=== PATIENT | male | born 2000 ===

== ENCOUNTER 2020-10-20 06:35 | Day surgery (SDC) | payer OTHER | END 2020-10-20 12:40 | disposition home or self-care (01) | LOC: AMB-ENDOS 06:35 | PROVIDERS: ATTEND Colon & Rectal Surgery | DX: K62.89 Other specified diseases of anus and rectum (principal); K64.0 First degree hemorrhoids ==

== ENCOUNTER 2023-06-18 10:15 | Day surgery (SDC) | payer OTHER ==
[2023-06-17 08:24] LABS: HEMOGLOBIN 15.8 g/dL (13-16.00); MEAN CELL VOLUME 89.4 fL (80.0-100.00); MEAN CORPUSCULAR HEMOGLOBIN 31.5 pg (27.00-32.0); MEAN CORPUSCULAR HGB CONC 35.2 g/dl (32.0-36.0); PLATELET COUNT 225 K/uL (150-450); RED BLOOD COUNT 5.04 M/uL (4.00-6.00); RED CELL DISTRIBUTION WIDTH 12.6 % (11.5-14.5)
[2023-06-17 08:32] LABS: PH,URINE 5.5 (5.0-8.0); URINE APPEARANCE Clear; URINE BILIRRUBIN Negative (NEGATIVE); URINE BLOOD Negative; URINE COLOR Dark Yellow; URINE GLUCOSE Negative (NEGATIVE); URINE LEUKOCYTE Negative; URINE NITRATE Negative; URINE PROTEIN 30 (NEGATIVE)
[2023-06-17 08:36] LABS: URINE BACTERIA 13.8 uL (0.0-1933); URINE EPITHELIAL CELLS 5.7 uL (0.0-38.8); URINE RBC 7.4 uL (0.0-20.8)
[2023-06-17 08:49] LABS: INR 1.02
[2023-06-17 08:54] LABS: PROTHROMBIN TIME 10.7 SECONDS (9.0-11.5)
[2023-06-17 09:05] LABS: ALBUMIN 4.3 gm/dL (3.4-5.0); BILIRUBIN TOTAL 0.89 mg/dL (0.3-1.2); CALCIUM 9.7 mg/dL (8.5-10.1); CREATININE SERUM 1.35 mg/dL (0.70-1.30); GFR 64.93; GLOBULINA 3.4 G/DL (2.4-3.5); POTASSIUM 3.94 mEq/L (3.5-5.1); TOTAL PROTEIN 7.7 gm/dL (6.4-8.2)
[~2023-06-18] VITALS: Ht 175.3 cm; Wt 81.6 kg
[2023-06-18] MEDS ORDERED: METRONIDAZOLE/SODIUM CHLORIDE 500 MG/100 ML PIGGYBACK IV ONE ×2 (12:23→13:45)
[2023-06-18] MEDS ORDERED: CEFTRIAXONE SODIUM 2,000 MG VIAL ONE (12:23)
[2023-06-18] MEDS ORDERED: BUPIVACAINE HCL/PF 0.5% 30ML ML ONE ×2 (12:58→13:02)
[2023-06-18] MEDS ORDERED: POVIDONE-IODINE 118 ML BOTT TOP ONE ×2 (12:59→13:45)
[2023-06-18] MEDS ORDERED: DIBUCAINE 15 GM OINT..GM. TUBE ONE (12:59)
[2023-06-18] MEDS ORDERED: HEMOSTATIC MATRIX 1 KIT KIT TOP ONE (12:59)
[2023-06-18] MEDS ORDERED: VISTASEAL DUAL APPICATOR 1 EACH APPL TOP ONE (13:08)
[2023-06-18] MEDS ORDERED: THROMBIN,HU/FIBRINOGEN/CALCIUM 10 ML SYRINGE TOP ONE ×2 (13:09→13:45)
[2023-06-18] MEDS ORDERED: CEFTRIAXONE SODIUM 2,000 MG VIAL IV ONE (13:45)
[2023-06-18] MEDS ORDERED: DIBUCAINE 15 GM OINT..GM. TUBE TOP ONE (13:45)
[2023-06-18] MEDS ORDERED: CHLORHEXIDINE GLUCONATE 120 ML BOTTLE TOP ONE ×2 (14:45→15:00)
== END 2023-06-18 19:15 | disposition home or self-care (01) ==
LOC: SURH 10:15 → O/R 10:15 → CIR.AMB 10:15 → O/R 19:15 → EDSTATUS 22:30 → SURH 22:30
PROVIDERS: ATTEND Colon & Rectal Surgery
DX: L05.91 Pilonidal cyst without abscess (principal); I10 Essential (primary) hypertension; M79.3 Panniculitis, unspecified